=== PATIENT | male | born 1945 | race African-American/Black ===

== ENCOUNTER 2020-07-02 08:51 | Emergency (ER) | payer MEDICARE, BC ==
[2020-07-02] MEDS ORDERED: Lidocaine 1% w/Epinephrine 1:100K 20 ML VIAL ONE (10:21)
== END 2020-07-02 11:28 | disposition home or self-care (01) ==
LOC: ERS 08:51
DX: L02.31 Cutaneous abscess of buttock (principal); I10 Essential (primary) hypertension; Z79.82 Long term (current) use of aspirin; Z79.899 Other long term (current) drug therapy
CPT/HCPCS: 10060

== ENCOUNTER 2020-09-08 22:23 | Inpatient (IN) | payer MEDICARE, BC ==
[~2020-09-08 22:23] MED LIST: Iopamidol-370 76% 500 ML 1 ML ONE
[2020-09-08 23:07] LABS: #Eosinphils 0.1 thou/uL (0.0-0.7); #Lymphocytes 2.3 thou/uL (1.20-3.40); #Monocytes 0.9 thou/uL (0.11-0.59); #Neutrophils 14.3 thou/uL (1.40-6.50); %Basophils 0.3 % (0.0-1.0); %Eosinophils 0.3 % (0.0-10.0); %Lymphocytes 12.9 % (21.0-51.0); %Neutrophils 81.5 % (42.0-75.0); Hemoglobin 11.1 g/dL (14.0-18.0); Mean Corpuscular HGB CONC 33.2 g/dL (32.0-36.0); Mean Corpuscular Hemoglobin 32.4 pg (27.0-31.0); Mean Corpuscular Volume 97.4 fL (78.0-98.0); Platelet Count 444 thou/uL (130-400); RBC Distribution Width 14.1 % (11.5-14.5); Red Blood Cell (RBC) Count 3.43 mill/uL (4.70-6.10); White Blood Cell (WBC) Count 17.6 thou/uL (4.8-10.8)
--- NOTE | 2020-09-08 23:16 | RAD ---
XR Chest 1 View Portable History: Chest pain Comparison: Radiograph November Findings: Multifocal airspace opacities throughout the lungs. No pneumothorax. No significant effusio n. Heart size is enlarged. Impression: Commonly reported imaging findings of Covid-19 pneumonia.
[2020-09-08 23:29] LABS: ALT (SGPT) 15 U/L (8-55); AST (SGOT) 17 U/L (5-34); Alkaline Phosphatase 102 U/L (40-110); Anion Gap 16 mmol/L (10-20); BUN (Urea Nitrogen) 21 mg/dL (8.4-25.7); Bilirubin, Total 0.4 mg/dL (0.2-1.2); Calc. Creatinine Clearance 0 mL/min (70-130); Calcium 8.7 mg/dL (7.8-10.44); Carbon Dioxide 23 mmol/L (23-31); Chloride 106 mmol/L (98-107); Globulin 3.9 g/dL (2.4-3.5); Glucose 103 mg/dL (83-110); Potassium 4.6 mmol/L (3.5-5.1); Protein, Total 6.9 g/dL (5.8-8.1); Sodium 140 mmol/L (136-145)
[2020-09-08] MEDS ORDERED: Dexamethasone 10 MG/ML VIAL ONE (23:37)
[2020-09-08] MEDS ORDERED: Azithromycin 500 MG VIAL ONE (23:37)
[2020-09-08] MEDS ORDERED: cefTRIAXone\\ROCEPHIN 2 GM VIAL ONE (23:37)
[2020-09-09] MEDS ORDERED: Ketorolac Tromethamine 30 MG/ML VIAL ONE (00:13)
[2020-09-09] MEDS ORDERED: Enoxaparin Sodium 100 MG/ML SYRINGE ONE (01:08)
[2020-09-09] MEDS ORDERED: Acetaminophen 325 MG TAB PO PRN (01:18)
--- NOTE | 2020-09-09 01:32 | PDOC.BPN ---
- Brief Progress Note [id number] HP dictated
[2020-09-09 01:50] LABS: Hemoglobin 10.4 g/dL (14.0-18.0); Platelet Count 420 thou/uL (130-400)
[2020-09-09 03:36] VITALS: BMI 31.4
[2020-09-09 05:55] LABS: #Monocytes 0.2 thou/uL (0.11-0.59); #Neutrophils 14.7 thou/uL (1.40-6.50); %Eosinophils 0.1 % (0.0-10.0); %Lymphocytes 6.5 % (21.0-51.0); %Monocytes 1.5 % (0.0-10.0); %Neutrophils 91.9 % (42.0-75.0); Hemoglobin 10.3 g/dL (14.0-18.0); Mean Corpuscular Hemoglobin 32.3 pg (27.0-31.0); Mean Corpuscular Volume 97.8 fL (78.0-98.0); Mean Platelet Volume 7.7 fL (7.4-10.4); Platelet Count 429 thou/uL (130-400); RBC Distribution Width 13.9 % (11.5-14.5); Red Blood Cell (RBC) Count 3.19 mill/uL (4.70-6.10)
--- NOTE | 2020-09-09 06:08 | HP ---
CHIEF COMPLAINT: Shortness of breath. HISTORY OF PRESENT ILLNESS: Mr. Kendall is a 75-year-old male with known COVID positive, presented to the emergency room with worsening shortness of breath, chest pain that radiates to his abdomen, is gradually worsening over the last several days. The patient denies any pre-existing asthma or COPD. He does not require oxygen at baseline. On arrival to the emergency room, the patient was hypoxic, placed on nasal cannula. Current saturations are in the mid 90s. Workup in the emergency room including imaging studies/CT of the chest showed COVID pneumonia and pulmonary embolism. Lab work, the patient was found to have acute kidney injury. Creatinine is 2.0. His baseline is around 1.6. WBC count elevated at 17.6, hemoglobin 11.1, platelets is 444. In the emergency room, the patient was given ceftriaxone, azithromycin, and dexamethasone and also was given one dose of subcutaneous Lovenox. The patient is being admitted to hospital for further management. PAST MEDICAL HISTORY: Hypertension. PAST SURGICAL HISTORY: 1. Colon resection. 2. Prostate surgery. SOCIAL HISTORY: Denies drug use. Drinks alcohol socially. Lives at home. No smoking history. FAMILY HISTORY: Reviewed and noncontributory. HOME MEDICATIONS: See home medication reconciliation form for updated medications. ALLERGIES: NO KNOWN ALLERGIES. REVIEW OF SYSTEMS: Review of 14 systems negative except what is mentioned in the history of present illness. PHYSICAL EXAMINATION: GENERAL: The patient is awake, alert, in moderate distress. VITAL SIGNS: Blood pressure 138/79, pulse is 95, respiratory rate is 20, temperature is 98.9, oxygen saturation is 96% on 2 L/minute nasal cannula, and temperature is 100.1. HEENT: Normocephalic, atraumatic. NECK: Supple. CHEST: Coarse bilateral breath sounds. HEART: S1, S2. Regular. ABDOMEN: Soft, nontender. Bowel sounds present. NEUROLOGIC: Awake, alert, moving extremities. PSYCH: Unable to assess. EXTREMITIES: No clubbing or cyanosis. LABORATORY DATA: As mentioned above in the history of present illness. IMAGING STUDIES: As mentioned above in the history of present illness. ASSESSMENT: 1. Acute hypoxic respiratory failure. 2. Acute pulmonary embolism. 3. COVID pneumonia. 4. Hypertension. PLAN: 1. Admit. 2. Oxygen saturation more than 92%. 3. Anticoagulation. The patient was started on Lovenox. We will switch him to IV heparin because of his kidney function. 4. IV dexamethasone. 5. Empiric IV antibiotics. The patient has leukocytosis, cannot rule out bacterial infection. 6. Reconcile home medications. 7. DVT prophylaxis, the patient is on anticoagulation. 8. Expected length of stay, 2 midnights or more. Job ID: [id number]
[2020-09-09 06:17] LABS: ALT (SGPT) 13 U/L (8-55); AST (SGOT) 13 U/L (5-34); Albumin 2.8 g/dL (3.4-4.8); Alkaline Phosphatase 91 U/L (40-110); Anion Gap 16 mmol/L (10-20); BUN (Urea Nitrogen) 21 mg/dL (8.4-25.7); Bilirubin, Total 0.3 mg/dL (0.2-1.2); Calc. Creatinine Clearance 43 mL/min (70-130); Calcium 8.6 mg/dL (7.8-10.44); Carbon Dioxide 21 mmol/L (23-31); Chloride 107 mmol/L (98-107); Globulin 4.5 g/dL (2.4-3.5); Glucose 131 mg/dL (83-110); Potassium 5.6 mmol/L (3.5-5.1); Protein, Total 7.3 g/dL (5.8-8.1); Sodium 138 mmol/L (136-145)
[2020-09-09] MEDS ORDERED: Non-Formulary Item 1 EACH (Multivitamin/Iron/Folic Acid [Centrum Adults Tablet] 1 EACH Ta PO SCH (09:00)
[2020-09-09] MEDS ORDERED: Non-Formulary Item 1 EACH (Zinc Gluconate [Zinc] 50 MG Tablet) PO SCH (09:00)
[2020-09-09] MEDS ORDERED: Amlodipine 10 MG TAB PO SCH (09:00)
[2020-09-09] MEDS ORDERED: ASCORBIC ACID 100 MG PO SCH (09:00)
[2020-09-09] MEDS ORDERED: Cholecalciferol (Vitamin D3) 400 UNITS TAB PO SCH (09:00)
--- NOTE | 2020-09-09 09:22 | CT ---
PRELIMINARY REPORT/[facility]/EMERGENCY AFTER HOURS PROCEDURE: Receipt of this report by the clinical staff was confirmed with Romana Motley MD by Pancho Graham on Sep 09, 2020 00:44:00 RN MDS. Addendum electronically signed by Aravind rGaham on September 09, 2020 12:44:45 AM RN MDS EXAM: CTA Chest with Intravenous Contrast CLINICAL HISTORY: 75-year-old male with known Covid positive presenting with increasing shortness of breath, chest pain that radiates to his abdomen that is gradually worsened over the last several days. TECHNIQUE: Axial CTA images of the chest with intravenous contrast. Three-dimensional MIP/volume rendered reform ations were performed. CONTRAST: With; 60ML ISOVUE 370 COMPARISON: None provided. FINDINGS: PULMONARY ARTERIES Filling defects are noted in segmental and subsegmental pulmonary arteries in the left lower lobe. AORTA No thoracic aortic aneurysm or dissection. LUNGS There are patchy groundglass and airspace opacities in the bilateral lungs. More confluent disease no bran in the right lower lobe. No cavitation. There is a trace right pleural effusion. Calcified lymph nodes are noted in the right hilum. PLEURAL SPACES No pleural effusion. No pneumothorax. HEART AND MEDIASTINUM Heart is enlarged. No evidence for right heart strain. LYMPH NODES No lymphadenopathy. BONES No focal osseous abnormality or acute fracture. CHEST WALL AND UPPER ABDOMEN Images through the upper abdomen are unremarkable. The chest wall is unremarkable. IMPRESSION: Evidence of segmental and subsegmental pulmonary emboli in the left lower lobe. Multifocal airspace and groundglass opacities in the lungs. Findings are consistent with multifocal pneumonia including Covid 19 pneumonia. Coexisting patchy groundglass opacities raise concern for henry perimposed diffuse alveolar damage. ELECTRONICALLY SIGNED BY: Ronna Amaya MD Sep 09, 2020 12:42:03 AM RN MDS This report is intended for review by the ordering physician only, in accordance of law. If you recei ve this report in error, please call [facility] at [phone]. FINAL REPORT EMERGENT AFTER HOURS CTA OF THE CHEST WITH CONTRAST: COMPARISON: 10/06/2013. FINDINGS/IMPRESSION: I agree with the findings and impression given in the preliminary report per [facility] physici an. 1. No evidence of pulmonary thromboembolism. 2. COVID pneumonia. POS: EAA
[2020-09-09] MEDS: Aspirin 325 mg Enteric Coated Tablet PO SCH (10:36)
[2020-09-09] MEDS: Sodium Chloride 0.9% 1,000 ML IV SCH (10:36)
[2020-09-09] MEDS: Cholecalciferol (Vitamin D3) 400 UNITS TAB PO SCH (10:36)
[2020-09-09] MEDS: Famotidine/PF 20 mg/2ml Vial SLOW IVP SCH (10:37)
[2020-09-09] MEDS: Multivit, Therapeutic 1 TAB PO SCH (10:37)
[2020-09-09] MEDS: Amlodipine 5 MG TAB PO SCH (10:37)
[2020-09-09] MEDS: Zinc Sulfate 220 MG CAP PO SCH (10:37)
[2020-09-09] MEDS: Dexamethasone Sod Phosphate 6 MG in Sodium Chloride 0.9% 50 ML IVPB SCH (10:54)
[2020-09-09] MEDS ORDERED: Heparin 10,000 UNITS/ 10 ML VIAL SLOW IVP SCH (13:00)
[2020-09-09] MEDS ORDERED: Heparin 25,000 units/D5W 500 ML IVPB SCH (13:00)
--- NOTE | 2020-09-09 15:50 | PDOC.EVN ---
Event Note - Event Note Event Note: Chart was reviewed. Patient was examined. Patient tested positive for Covid 8 days ago. He reports he was in his generally good state of health which included a lot of exercise until 9 days ago. At that time the patient was getting out of the shower and became very weak and lightheaded. He went the next day and saw his physician and tested positive for Covid. Since then he has been having some cough and some chest discomfort. Ultimately the pain became more intense and tended to localize more in the left posterior chest area. With that the patient presented to the emergency department. Reportedly the patient had room air sats in the mid 80s. He has a room air sat of 90 documented in the ER record. He was placed on oxygen with improvement of his sats. CTA chest revealed evidence of segmental and subsegmental pulmonary emboli in the left lower lobe. Multifocal airspace and groundglass opacities in the lungs. The findings were consistent with multifocal pneumonia including COVID-19 pneumonia. He also had some acute on chronic kidney injury. Due to that the plan was initially for him to be on a heparin drip although he did receive Lovenox in the ER. Today he is feeling better in general. He is breathing comfortably on 3 L nasal cannula. We discussed options for treatment with remdesivir. We discussed the potential risk and benefits as well as the timeframe. Given that he is at least 8 to 9 days out from the original symptoms there is little e vidence to support that Remdesivir has any significant positive impact at this time. He ultimately decided to forego treatment with remdesivir for now. Discussed with pharmacy. Will continue with therapeutic dose Lovenox while in the hospital. Will likely be able to transition to oral Eliquis at the time of discharge. Patient's baseline GFR is low 50s. Currently in the 30s. IV fluids. Patient's potassium is elevated. Likely secondary to his acute kidney injury. Giving some IV hydration and rechecking.
[2020-09-09 16:46] LABS: Anion Gap 14 mmol/L (10-20); BUN (Urea Nitrogen) 26 mg/dL (8.4-25.7); Calc. Creatinine Clearance 47 mL/min (70-130); Calcium 8.7 mg/dL (7.8-10.44); Carbon Dioxide 21 mmol/L (23-31); Chloride 107 mmol/L (98-107); Glucose 126 mg/dL (83-110); Potassium 5.4 mmol/L (3.5-5.1); Sodium 137 mmol/L (136-145)
[2020-09-09] MEDS: Enoxaparin Sodium 100 MG/ML SYRINGE SC SCH (21:08)
[2020-09-09] MEDS: Ascorbic Acid 500 mg Chewable Tablet PO SCH (21:08)
[2020-09-10] MEDS: Sodium Chloride 0.9% 1,000 ML IV SCH (00:10)
[2020-09-10] MEDS ORDERED: Senokot S 8.6-50 MG TAB PO SCH ×2 (01:15→09:00)
[2020-09-10 06:09] LABS: Anion Gap 14 mmol/L (10-20); BUN (Urea Nitrogen) 28 mg/dL (8.4-25.7); Calc. Creatinine Clearance 48 mL/min (70-130); Calcium 8.5 mg/dL (7.8-10.44); Carbon Dioxide 19 mmol/L (23-31); Chloride 111 mmol/L (98-107); Glucose 105 mg/dL (83-110); Potassium 4.9 mmol/L (3.5-5.1); Sodium 139 mmol/L (136-145)
[2020-09-10] MEDS ORDERED: Polyethylene Glycol 3350 17 GM Packet PO SCH (09:00)
[2020-09-10] MEDS: Cholecalciferol (Vitamin D3) 400 UNITS TAB PO SCH (09:03)
[2020-09-10] MEDS: Multivit, Therapeutic 1 TAB PO SCH (09:03)
[2020-09-10] MEDS: Zinc Sulfate 220 MG CAP PO SCH (09:03)
[2020-09-10] MEDS: Aspirin 325 mg Enteric Coated Tablet PO SCH (09:03)
[2020-09-10] MEDS: Ascorbic Acid 500 mg Chewable Tablet PO SCH (09:04)
[2020-09-10] MEDS: Amlodipine 5 MG TAB PO SCH (09:04)
[2020-09-10] MEDS: Dexamethasone Sod Phosphate 6 MG in Sodium Chloride 0.9% 50 ML IVPB SCH (09:05)
[2020-09-10] MEDS: Famotidine/PF 20 mg/2ml Vial SLOW IVP SCH (09:05)
[2020-09-10] MEDS: Enoxaparin Sodium 100 MG/ML SYRINGE SC SCH (09:05)
[2020-09-10] MEDS ORDERED: Apixaban 5 MG TAB PO SCH (09:30)
[2020-09-10 12:14] VITALS: BP 157/73; TEMP 97.1
--- NOTE | 2020-09-10 15:57 | PDOC.DS.DS ---
Provider - Provider Date of Admission: 09/09/20 01:23 Date of Discharge: 09/10/20 Admitting Provider: Elizabeth Butler MD Primary Care Physician: Mir Quinteros, Course - Hospital Course Hospital Course: This patient is a 75-year-old male who tested positive for Covid 8 prior to admission. He reports he was in his generally good state of health which included a lot of exercise until 9 days prior to admission. At that time the patient was getting out of the shower and became very weak and lightheaded and had a mild fall. He went the next day and saw his physician and tested positive for Covid. Since then he has been having some cough and some chest discomfort. Ultimately, the pain became more intense and tended to localize more in the left posterior chest area. With that the patient presented to the emergency department. Reportedly the patient had room air sats in the mid 80s. He has a room air sat of 90 documented in the ER record. He was placed on oxygen with improvement of his sats. CTA chest revealed evidence of segmental and subsegmen felicia pulmonary emboli in the left lower lobe. Multifocal airspace and groundglass opacities in the lungs. The findings were consistent with multifocal pneumonia including COVID-19 pneumonia. He also had some acute on chronic kidney injury. Acute hypoxic respiratory failure: Patient likely had worsening oxygenation due to the pulmonary embolus is much as the Covid. He was placed on supplemental oxygen briefly. His oxygenation improved rapidly and he was able to come off oxygen very quickly. Pulmonary embolus: Risk factors include the Covid infection in the recent fall. Certainly Covid increases the potential for thrombosis. He was started on Lovenox in the emergency department. This was continued while in the hospital. With his hypoxia rapidly resolved he was felt to be stable for discharge with outpatient treatment. He was subsequently transitioned to Eliquis which he tolerated. COVID-19 pneumonia: Again its likely the patient's hypoxia was more related to his pulmonary embolus than the Covid infection. Patient's hypoxia resolved very rapidly. Because he was on day 9 of symptoms the benefit of Remdesivir is likely negligible based on data. We discussed potential treatment options and he opted not to pursue Remdesivir at that time. He did receive some Decadron. Ultimately without hypoxia he was felt to be stable for discharge. Acute on chronic kidney disease stage III: Patient has chronic kidney disease stage III with a GFR around 50. On presentation the patient's GFR was around the 30s. With IV fluids rebounded into the 40s. Hyperkalemia: This was contemporaneous with the acute kidney injury. Resolved with hydration and improvement of the renal function. Disposition: Patient's hypoxia improved far more rapid than anticipated especially in light of his Covid infection.. His renal function rebounded more rapidly than anticipated. However without hypoxia he was felt to be stable for discharge to home. Patient is to follow-up with his PCP, Dr. Babin. He will be given a prescription card for the Eliquis for 1 month supply. However, he is encouraged to find out from the pharmacy what it will cost him to continue that subsequent. If it is cost prohibitive he can discuss with his PCP possible alternatives such as Lovenox or warfarin. Resuscitation Status: 09/09/20 01:18 Resuscitation Status Routine Resuscitation Status: FULL: Full Resuscitation - Labs Lab Results: 09/09/20 04:55 09/10/20 04:54 Abnormal Lab Results - Last 48 hrs 09/08/20 22:52: WBC 17.6 H, RBC 3.43 L, Hgb 11.1 L, Hct 33.4 L, MCH 32.4 H, Plt Count 444 H, MPV 7.0 L, Neutrophils % 81.5 H, Lymphocytes % 12.9 L, Neutrophils # 14.3 H, Monocytes # 0.9 H 09/08/20 22:52: Creatinine 2.05 H, Albumin 3.0 L, Globulin 3.9 H, Albumin/Globulin Ratio 0.8 L 09/09/20 01:40: Hgb 10.4 L, Hct 31.2 L, Plt Count 420 H 09/09/20 01:40: APTT 43.7 H 09/09/20 04:55: Potassium 5.6 H, Carbon Dioxide 21 L, Creatinine 2.06 H, Albumin 2.8 L, Globulin 4.5 H, Albumin/Globulin Ratio 0.6 L 09/09/20 04:55: WBC 16.0 H, RBC 3.19 L, Hgb 10.3 L, Hct 31.2 L, MCH 32.3 H, Plt Count 429 H, Neutrophils % 91.9 H, Lymphocytes % 6.5 L, Neutrophils # 14.7 H, Lymphocytes # 1.0 L 09/09/20 07:38: APTT 51.5 H 09/09/20 09:13: C-Reactive Protein 11.92 H 09/09/20 16:13: Potassium 5.4 H, Carbon Dioxide 21 L, BUN 26 H, Creatinine 1.88 H 09/09/20 16:13: C-Reactive Protein 13.08 H 09/10/20 04:54: Ferritin 1288.25 H 09/10/20 04:54: Chloride 111 H, Carbon Dioxide 19 L, BUN 28 H, Creatinine 1.83 H - Physical Exam Vitals: Vital Signs (12 hours) Temp Pulse Resp BP BP Pulse Ox 09/10/20 12:00 97.1 F L 68 18 157/73 H 94 L 09/10/20 09:04 67 141/65 H 09/10/20 07:35 97.5 F L 67 16 141/65 H 95 Weight Weight 212 lb 4.8 oz Physical Exam: The patient was seen and examined on the day of discharge. Patient was awake and alert. Heart was regular without murmurs. Lungs were clear to auscultation bilaterally with the exception of mild rales in the left base. Abdomen soft nontender Extremities no cyanosis, clubbing, edema or tenderness. Problem - Problem (1) Acute respiratory failure with hypoxia Code(s): J96.01 - ACUTE RESPIRATORY FAILURE WITH HYPOXIA Status: Acute (2) Pneumonia due to COVID-19 virus Code(s): U07.1 - COVID-19; J12.89 - OTHER VIRAL PNEUMONIA Status: Acute (3) Pulmonary embolus Code(s): I26.99 - OTHER PULMONARY EMBOLISM WITHOUT ACUTE COR PULMONALE Status: Acute (4) Acute worsening of stage 3 chronic kidney disease Code(s): N18.30 - CHRONIC KIDNEY DISEASE, STAGE 3 UNSPECIFIED Status: Acute (5) Hyperkalemia Code(s): E87.5 - HYPERKALEMIA Status: Acute Plan - Discharge Medications Prescriptions: Apixaban [Eliquis] 5 mg PO BID #72 tablet Home Medications: Medication Instructions Recorded Confirmed Type Amlodipine [Norvasc] 5 mg PO DAILY 10/06/13 09/09/20 History Aspirin [Aspirin EC] 325 mg PO DAILY 10/06/13 09/09/20 History Ascorbic Acid [Vitamin C] 100 mg PO BID 09/09/20 09/09/20 History Cholecalciferol (Vitamin D3) 400 unit PO DAILY 09/09/20 09/09/20 History [Vitamin D3] Multivitamin/Iron/Folic Acid 1 tab PO DAILY 09/09/20 09/09/20 History [Centrum Adults Tablet] Zinc Gluconate [Zinc] 100 mg PO DAILY 09/09/20 09/09/20 History Apixaban [Eliquis] 5 mg PO BID #72 tablet 09/10/20 Rx Allergies: No Known Allergies Allergy (Verified 09/09/20 03:48) - Discharge Instructions Discharge Instructions:: Discuss with Dr. Babin the option of continued Eliquis v. other options if Eliquis is cost prohibitive. Activity:: Activity as Tolerated Nourishment:: Heart Healthy Diet - Follow up Plan Referrals: Steven Babin MD [Active] - 3 Days Disposition: HOME Quality - Care Measures CORE MEASURES:: N/A
--- NOTE | 2020-09-17 15:06 | EKG ---
Test Reason : Blood Pressure : / mmHG Vent. Rate : 099 BPM Atrial Rate : 099 BPM P-R Int : 144 ms QRS Dur : 128 ms QT Int : 368 ms P-R-T Axes : 042 -17 -14 degrees QTc Int : 472 ms Normal sinus rhythm Possible Left atrial enlargement Right bundle branch block Left ventricular hypertrophy Abnormal ECG Confirmed by AARON CRUZ ([id number]), editor continuity and script СВЕТЛАНА ANDERSON ([id number]) on 09/17/2020 3:06:38 PM Referred By: Confirmed By:AARON CRUZ
== END 2020-09-10 13:34 | disposition home or self-care (01) | DRG 177 ==
LOC: ERS 22:23 → 2SW 09-09 01:23
PROVIDERS: ADMIT Internal Medicine; ATTEND Internal Medicine
DX: U07.1 COVID-19 (principal); J12.89 Other viral pneumonia; J96.01 Acute respiratory failure with hypoxia; I26.99 Other pulmonary embolism without acute cor pulmonale; N17.9 Acute kidney failure, unspecified; I12.9 Hypertensive chronic kidney disease with stage 1 through stage 4 chronic kidney disease, or unspecified chronic kidney disease; Z79.82 Long term (current) use of aspirin; Z79.899 Other long term (current) drug therapy; Z90.49 Acquired absence of other specified parts of digestive tract; E87.5 Hyperkalemia; N18.30 Chronic kidney disease, stage 3 unspecified
CPT/HCPCS: 36415; 71045; 71275; 80048; 80053; 82728; 84484; 85025; 85730; 86140; 93005; 94760; 96365; 96367; 96372; 96375; J0456; J0696; J1100; J1650; J1885; Q9967; S0028

== ENCOUNTER 2020-09-14 21:28 | Emergency (ER) | payer MEDICARE, BC ==
[2020-09-14] MEDS ORDERED: Acetaminophen 325 MG TAB ONE (22:15)
[2020-09-14 23:14] LABS: #Eosinphils 0.1 thou/uL (0.0-0.7); #Lymphocytes 2.1 thou/uL (1.20-3.40); #Monocytes 0.9 thou/uL (0.11-0.59); #Neutrophils 7.8 thou/uL (1.40-6.50); %Basophils 0.2 % (0.0-1.0); %Monocytes 8.3 % (0.0-10.0); %Neutrophils 71.5 % (42.0-75.0); Hemoglobin 9.9 g/dL (14.0-18.0); Mean Corpuscular HGB CONC 32.5 g/dL (32.0-36.0); Mean Corpuscular Hemoglobin 31.7 pg (27.0-31.0); Mean Corpuscular Volume 97.7 fL (78.0-98.0); Mean Platelet Volume 7.1 fL (7.4-10.4); Platelet Count 477 thou/uL (130-400); RBC Distribution Width 14.6 % (11.5-14.5); Red Blood Cell (RBC) Count 3.11 mill/uL (4.70-6.10); White Blood Cell (WBC) Count 10.9 thou/uL (4.8-10.8)
[2020-09-14 23:21] LABS: Bacteria/HPF None Seen HPF (None Seen); Bilirubin Negative (Negative); Blood, Urine Negative (Negative); Clarity Clear (Clear); Glucose, Urine (Dipstick) Normal (Negative); Ketone, Urine Negative (Negative); Leukocyte Negative Leu/uL (Negative); Nitrite Negative (Negative); Protein, Urine (Dipstick) 100 mg/dL (Neg-Trace); RBC/HPF 0-3 HPF (0-3); Specific Gravity, Urine 1.016 (1.002-1.036); Squamous Epithelial 0-3 HPF (0-3); Urobilinogen Normal mg/dL (Less than 2); WBC/HPF 0-3 HPF (0-3); pH, Urine 5.5 (5.0-9.0)
[2020-09-14 23:34] LABS: ALT (SGPT) 39 U/L (8-55); AST (SGOT) 20 U/L (5-34); Albumin 2.8 g/dL (3.4-4.8); Alkaline Phosphatase 93 U/L (40-110); Anion Gap 11 mmol/L (10-20); BUN (Urea Nitrogen) 21 mg/dL (8.4-25.7); Bilirubin, Total 0.2 mg/dL (0.2-1.2); Calc. Creatinine Clearance 0 mL/min (70-130); Calcium 8.6 mg/dL (7.8-10.44); Carbon Dioxide 23 mmol/L (23-31); Chloride 111 mmol/L (98-107); Glucose 98 mg/dL (83-110); Potassium 4.2 mmol/L (3.5-5.1); Protein, Total 6.8 g/dL (5.8-8.1); Sodium 141 mmol/L (136-145)
--- NOTE | 2020-09-14 23:34 | RAD ---
Portable frontal chest radiograph: 09/14/2020 COMPARISON: 09/08/2020 HISTORY: Chest pain Covid positive patient FINDINGS: Subtle hazy areas of increased density are noted in the perihilar regions and lung bases, r ight greater than left. Blunting of the right costophrenic angle suggests a right pleural effusion or parenchymal opacity in the right base. The hazy parenchymal opacities seen bilaterally have improv ed when compared to the 09/08/2020 exam. No discrete pneumothorax is appreciated on this exam. IMPRESSION: Hazy perihilar and bibasilar increased density, nonspecific and improved when compared to the 09/08/2020 exam. Nonspecific increased density in the right lung base. Recommend follow-up imaging following treatment to document resolution. Findings suggest atypical infectious pneumonitis, such as Covid 19.
[2020-09-15] MEDS ORDERED: Bacitracin 1 PK ONE (00:45)
--- NOTE | 2020-09-17 16:31 | EKG ---
Test Reason : Blood Pressure : / mmHG Vent. Rate : 064 BPM Atrial Rate : 064 BPM P-R Int : 158 ms QRS Dur : 082 ms QT Int : 394 ms P-R-T Axes : 043 -15 -11 degrees QTc Int : 406 ms Sinus rhythm with Premature atrial complexes Voltage criteria for left ventricular hypertrophy Abnormal ECG Confirmed by MAGALIS ARAYA M.D. ([id number]), editorial director СВЕТЛАНА ANDERSON ([id number]) on 09/17/2020 4:31:44 PM Referred By: Confirmed By:MAGALIS ARAYA M.D.
== END 2020-09-15 01:38 | disposition home or self-care (01) ==
LOC: ERS 21:28
DX: U07.1 COVID-19 (principal); D64.9 Anemia, unspecified; I10 Essential (primary) hypertension; Z79.899 Other long term (current) drug therapy; Z79.82 Long term (current) use of aspirin
CPT/HCPCS: 36415; 71045; 80053; 81003; 81015; 84484; 85025; 93005

== ENCOUNTER 2021-03-07 08:30 | Emergency (ER) | payer BC, MEDICARE ==
[2021-03-07] MEDS ORDERED: HYDROcodone/Acetaminophen 7.5/325 mg Tablet ONE (10:28)
[2021-03-07] MEDS ORDERED: Hydrocodone-Acetamin 15 ML UDCUP ONE (10:28)
== END 2021-03-07 10:57 | disposition home or self-care (01) ==
LOC: ERS 08:30
DX: K64.4 Residual hemorrhoidal skin tags (principal); I10 Essential (primary) hypertension; Z79.899 Other long term (current) drug therapy; Z79.82 Long term (current) use of aspirin; Z79.01 Long term (current) use of anticoagulants
CPT/HCPCS: 99283

== ENCOUNTER 2022-01-30 11:58 | Emergency (ER) | payer OTHER, MEDICARE ==
[2022-01-30] MEDS ORDERED: Boostrix 0.5 ML (Tdap) VIAL ONE (15:11)
== END 2022-01-30 16:11 | disposition home or self-care (01) ==
LOC: ERS 11:58
DX: S09.90XA Unspecified injury of head, initial encounter (principal); S60.012A Contusion of left thumb without damage to nail, initial encounter; S80.211A Abrasion, right knee, initial encounter; I10 Essential (primary) hypertension; Z23 Encounter for immunization; Z79.82 Long term (current) use of aspirin; Z79.899 Other long term (current) drug therapy; W01.0XXA Fall on same level from slipping, tripping and stumbling without subsequent striking against object, initial encounter
CPT/HCPCS: 70450; 72125; 90471; 90715

== ENCOUNTER 2022-05-13 07:29 | Emergency (ER) | payer MEDICARE ==
[2022-05-13] MEDS ORDERED: predniSONE 20 MG TAB ONE (08:00)
== END 2022-05-13 08:25 | disposition home or self-care (01) ==
LOC: ERS 07:29
DX: M10.9 Gout, unspecified (principal); I10 Essential (primary) hypertension; Z79.899 Other long term (current) drug therapy; Z79.82 Long term (current) use of aspirin
CPT/HCPCS: 99283; J7512

== ENCOUNTER 2023-03-15 01:08 | Emergency (ER) | payer MEDICARE | END 2023-03-15 03:02 | disposition left against medical advice (07) | LOC: ERS 01:08 | DX: Z53.21 Procedure and treatment not carried out due to patient leaving prior to being seen by health care provider (principal) ==